=== PATIENT | male | born 1955 | race Caucasian/White ===

== ENCOUNTER 2017-12-25 19:30 | Emergency (ER) | payer BC ==
[2017-12-25 19:46] VITALS: TEMP 98.8; BMI 23.7
--- NOTE | 2017-12-25 19:47 | PDOC ---
Rapid Medical Evaluation Medical Evaluation: Allergies Allergy/AdvReac Type Severity Reaction Status Date / Time No Known Allergies Allergy Verified 09/03/16 07:05 12/25/17 19:41 I have performed a brief in-person evaluation of this patient. The patient presents with a chief complaint of: accidentally drank a sip of ammonia ~ 1 hr ago, vomited x 3 times, denies pain Pertinent physical exam findings: no resp distress, no neuro deficits. I have ordered the following: Per poison control monitor for persistent GI symptoms, resp distress, stridor, abd pain, drooling. Labs, CXR The patient will proceed to the ED for further evaluation. Discharge Disposition - Diagnosis Ingestion of caustic substance - Referrals - Patient Instructions - Post Discharge Activity
--- NOTE | 2017-12-25 20:23 | PDOC ---
History of Present Illness - General Exam Limitations: No Limitations - History of Present Illness Initial Comments: 12/25/17 20:30 The patient is a 62 year old male, with a significant past medical history of hypertension, who presents to the emergency department s/p, taking a sip of ammonia from a water bottle that he thought was water. The patient reports he had transferred the ammonia to the water bottle yesterday for later use. However , the patient states that earlier today he thought the bottle was water and did not remember it was ammonia until he had taken a sip. The patient reports a sensation of mild sore throat described as a burnt sensation. He states the sore throat pain was 8/10 at presentation but now is a 5/10. He also reports two episodes of emesis (non bloody, non bilious). He denies any recent fevers, chills, headache or dizziness. He denies any recent diarrhea or constipation. He denies any recent chest pain or shortness of breath. He denies any recent dysuria, frequency, urgency or hematuria. Allergies: NKA Primary Care Physician: Dr. Ramin Andujar <Yovany Harrison - Last Filed: 12/25/17 21:20> - General History Source: Patient <AnoopHero myles - Last Filed: 12/26/17 19:18> - General Chief Complaint: Ingestion Stated Complaint: EVALUATION Time Seen by Provider: 12/25/17 19:41 Past History <Yovany Harrison - Last Filed: 12/25/17 21:20> - Past Medical History Anemia: No Asthma: No Cancer: No Cardiac Disorders: No CVA: No COPD: No CHF: No Dementia: No Diabetes: Yes GI Disorders: No Disorders: No HTN: Yes Hypercholesterolemia: No Liver Disease: No Seizures: No Thyroid Disease: No - Surgical History Cardiac Surgery: Yes (heart as a child) - Immunization History Immunization Up to Date: Yes - Suicide/Smoking/Psychosocial Hx Smoking History: Never smoked Have you smoked in the past 12 months: No Number of Cigarettes Smoked Daily: 0 Cigars Per Day: 0 Hx Alcohol Use: No Drug/Substance Use Hx: No Substance Use Type: None <Hero Wyatt - Last Filed: 12/26/17 19:18> - Past Medical History Allergies/Adverse Reactions: Allergies Allergy/AdvReac Type Severity Reaction Status Date / Time No Known Allergies Allergy Verified 12/25/17 19:41 Home Medications: Ambulatory Orders Aspirin [ASA] 81 mg PO DAILY 08/12/12 Metoprolol Succinate [Toprol XL] 100 mg PO DAILY 08/12/12 Quinapril HCl [Accupril] 40 mg PO DAILY 08/12/12 Benzonatate [Tessalon Pearls -] 100 mg PO TID #21 capsule 09/03/16 Review of Systems - Review of Systems Comments:: 12/25/17 20:32 CONSTITUTIONAL: Absent: fever, no chills, no fatigue EYES: Absent: visual changes ENT: Present: (+) Sore throat Absent: ear pain CARDIOVASCULAR: Absent: chest pain, no palpitations RESPIRATORY: Absent: cough, no SOB GI: Present: (+) Nausea. (+) Vomiting Absent: abdominal pain, no constipation, no diarrhea GENITOURINARY: Absent: dysuria, no frequency, no hematuria MUSKULOSKELETAL: Absent: back pain, no arthralgia, no myalgia SKIN: Absent: rash NEURO: Absent: headache <Yovany Harrison - Salo Filed: 12/25/17 21:20> *Physical Exam - Vital Signs Last Vital Signs Temp Pulse Resp BP Pulse Ox 98.8 F 82 18 140/89 97 12/25/17 19:42 12/25/17 19:42 12/25/17 19:42 12/25/17 19:42 12/25/17 19:42 - Physical Exam Comments: 12/25/17 20:37 GENERAL: Well-appearing, well-nourished. No apparent distress. HEENT: Normocephalic, atraumatic. PERRL, EOM intact. No drooling or hot potato voice. CARDIOVASCULAR: Normal S1, S2. Regular rate and rhythm. PULMONARY: Clear to auscultation bilaterally. No stridor. No wheezing. ABDOMEN: Soft, non-distended, non-tender. EXTREMITIES: Normal ROM in all four extremities. No gross deformities. SKIN: Warm, dry. No rash NEUROLOGICAL: No focal neurological deficits. <Yovany Harrison - Last Filed: 12/25/17 21:20> - Vital Signs Last Vital Signs Temp Pulse Resp BP Pulse Ox 98.8 F 82 18 140/89 97 12/25/17 19:42 12/25/17 19:42 12/25/17 19:42 12/25/17 19:42 12/25/17 19:42 <Hero Wyatt - Last Filed: 12/26/17 19:18> ED Treatment Course - RADIOLOGY Radiograph Interpretation: 12/25/17 21:20 EXAM#: TYPE/EXAM: RESULT: [id number] RAD/CHEST PA LAT HISTORY PROVIDED: Ingested ammonia PA and lateral projections of the chest are submitted. The heart size is within normal limits. The lung weiss are free of pulmonary infiltrates or pleural effusions. Mild COPD changes are noted diffusely. There is tortuosity and calcification of the thoracic aorta and degenerative changes of the thoracic spine. IMPRESSION: No acute disease. Reported By: Gage Cortes MD <Yovany Harrison - Last Filed: 12/25/17 21:20> Medical Decision Making - Medical Decision Making 12/26/17 19:18 Dr. Wyatt: The scribe's documentation has been prepared under my direction and personally reviewed by me in its entirery. I confirm that the note above accurately reflects all work, treatment, procedures, and medical decision making performed by me. <Hero Wyatt - Last Filed: 12/26/17 19:18> *DC/Admit/Observation/Transfer - Attestations Scribe Attestion: 12/25/17 20:38 Documentation prepared by Yovany Harrison, acting as medical tech for Hero Wyatt MD. <Yovany Harrison - Last Filed: 12/25/17 21:20> - Discharge Dispostion Admit: No <Hero Wyatt - Last Filed: 12/26/17 19:18> Diagnosis at time of Disposition: Ingestion of caustic substance - Discharge Dispostion Disposition: HOME Condition at time of disposition: Stable - Referrals Referrals: Chivo Andujar MD [Primary Care Provider] - - Patient Instructions Printed Discharge Instructions: DI for Accidental Ingestion -- Adult Additional Instructions: Please follow up with your doctor in the next two days. Return if any problems - Post Discharge Activity
[2017-12-25 22:24] VITALS: BP 140/90; PULSE 83
[2017-12-25] MEDS ORDERED: LIDOCAINE VISCOUS 2% ORAL/TOP 20 ML UNIT-DOSE CUP ONE (22:37)
[2017-12-25] MEDS ORDERED: LIDOCAINE VISCOUS 2% ORAL/TOP 20 ML UNIT-DOSE CUP MM ONE (22:37)
== END 2017-12-25 23:08 | disposition home or self-care (01) ==
LOC: JER 19:30
DX: T54.3X1A Toxic effect of corrosive alkalis and alkali-like substances, accidental (unintentional), initial encounter (principal); R11.2 Nausea with vomiting, unspecified; Y92.018 Other place in single-family (private) house as the place of occurrence of the external cause; I10 Essential (primary) hypertension; E11.9 Type 2 diabetes mellitus without complications
CPT/HCPCS: 71046-TC-FY; 99282-25